=== PATIENT | male | born 1970 | race Caucasian/White ===

== ENCOUNTER 2024-12-10 14:22 | Emergency (ER) | payer BC, MEDICAID ==
[2024-12-10] MEDS: Diphtheria,Pertussis(Acell),Tetanus Vaccine 0.5 ML Syringe IM ONE (14:46)
== END 2024-12-10 15:52 | disposition home or self-care (01) ==
LOC: FB.ED 14:22
DX: S61.233A Puncture wound without foreign body of left middle finger without damage to nail, initial encounter (principal); S61.235A Puncture wound without foreign body of left ring finger without damage to nail, initial encounter; F17.200 Nicotine dependence, unspecified, uncomplicated; Z23 Encounter for immunization; Z88.6 Allergy status to analgesic agent; W29.4XXA Contact with nail gun, initial encounter
CPT/HCPCS: 73140-LT; 90471; 90715; 99283-25